=== PATIENT | female | born 1940 | race Caucasian/White ===

== ENCOUNTER 2021-09-04 09:05 | Outpatient (CLI) | payer MEDICARE, BC ==
[2021-09-04 10:08] LABS: #Basophils 0.1 thou/uL (0.0-0.2); #Eosinphils 0.3 thou/uL (0.0-0.7); #Lymphocytes 1.6 thou/uL (1.20-3.40); #Monocytes 0.3 thou/uL (0.11-0.59); #Neutrophils 2.4 thou/uL (1.40-6.50); %Basophils 1.3 % (0.0-1.0); %Eosinophils 6.3 % (0.0-10.0); %Lymphocytes 34.3 % (21.0-51.0); %Monocytes 6.7 % (0.0-10.0); %Neutrophils 51.4 % (42.0-75.0); Hemoglobin 13.1 g/dL (12.0-16.0); Mean Corpuscular HGB CONC 31.9 g/dL (32.0-36.0); Mean Corpuscular Hemoglobin 30.8 pg (27.0-31.0); Mean Corpuscular Volume 96.5 fL (78.0-98.0); Mean Platelet Volume 6.8 fL (7.4-10.4); Platelet Count 238 thou/uL (130-400); RBC Distribution Width 12.6 % (11.5-14.5); Red Blood Cell (RBC) Count 4.26 mill/uL (4.20-5.40); White Blood Cell (WBC) Count 4.7 thou/uL (4.8-10.8)
[2021-09-04 10:09] LABS: PTT 34.4 sec (22.9-36.1); Prothrombin Time 31.6 sec (12.0-14.7)
[2021-09-04 10:20] LABS: AST (SGOT) 16 U/L (5-34); Albumin 3.5 g/dL (3.4-4.8); Alkaline Phosphatase 59 U/L (40-110); Anion Gap 16 mmol/L (10-20); BUN (Urea Nitrogen) 12 mg/dL (9.8-20.1); Bilirubin, Total 0.3 mg/dL (0.2-1.2); Calc. Creatinine Clearance 0 mL/min (70-130); Calcium 9.2 mg/dL (7.8-10.44); Carbon Dioxide 22 mmol/L (23-31); Cardiac Risk 2.2 (Less than 4.5); Chloride 108 mmol/L (98-107); Cholesterol 142 mg/dl (< 200 Desired); Globulin 3.2 g/dL (2.4-3.5); Glucose 84 mg/dL (83-110); HDL Cholesterol 64 mg/dL (>60 Neg Risk); LDL Cholesterol, Calculated 63 mg/dL; Potassium 3.9 mmol/L (3.5-5.1); Protein, Total 6.7 g/dL (5.8-8.1); Sodium 142 mmol/L (136-145); Triglycerides 73 mg/dL (Less than 150)
[2021-09-04 10:24] LABS: ALT (SGPT) 9 U/L (8-55)
[2021-09-04 12:31] LABS: Thyroid Stimulating Hormone 2.3859 uIU/mL (0.35-4.94)
[2021-09-04 16:59] LABS: Vitamin D, 25 Hydroxy 107.4 ng/ml (> 30.0)
[2021-09-04 17:03] LABS: Free T4 (Free Thyroxine) 1.41 ng/dL (0.70-1.48)
[2021-09-04 17:08] LABS: Vitamin B12 Greater than 2000 pg/mL (211-911)
== END 2021-09-04 09:06 | disposition home or self-care (01) ==
LOC: MADLAB 09:05
PROVIDERS: ATTEND Family Medicine
DX: Z51.81 Encounter for therapeutic drug level monitoring (principal); I26.99 Other pulmonary embolism without acute cor pulmonale; N18.30 Chronic kidney disease, stage 3 unspecified; E55.9 Vitamin D deficiency, unspecified; F31.9 Bipolar disorder, unspecified; E78.2 Mixed hyperlipidemia; E03.9 Hypothyroidism, unspecified; R26.81 Unsteadiness on feet; R53.83 Other fatigue; Z79.01 Long term (current) use of anticoagulants
CPT/HCPCS: 36415; 80053; 80061; 80164; 82306; 82607; 84439; 84443; 85025; 85610; 85730

== ENCOUNTER 2021-09-30 14:56 | Outpatient (CLI) | payer BC, MEDICARE ==
[2021-09-30 15:36] LABS: INR-International Normal Ratio 1.1; PTT 24.5 sec (22.9-36.1); Prothrombin Time 14.5 sec (12.0-14.7)
== END 2021-09-30 14:57 | disposition home or self-care (01) ==
LOC: MADLAB 14:56
PROVIDERS: ATTEND Family Medicine
DX: Z51.81 Encounter for therapeutic drug level monitoring (principal); I26.99 Other pulmonary embolism without acute cor pulmonale; Z79.01 Long term (current) use of anticoagulants
CPT/HCPCS: 36415; 85610; 85730

== ENCOUNTER 2021-12-10 14:12 | Outpatient (CLI) | payer MEDICARE, BC ==
[2021-12-10 14:44] LABS: INR-International Normal Ratio 1.8; Prothrombin Time 20.8 sec (12.0-14.7)
[2021-12-10 14:45] LABS: PTT 28.9 sec (22.9-36.1)
== END 2021-12-10 14:13 | disposition home or self-care (01) ==
LOC: MADLAB 14:12 → MADRAD 14:13
PROVIDERS: ATTEND Family Medicine
DX: Z51.81 Encounter for therapeutic drug level monitoring (principal); I26.99 Other pulmonary embolism without acute cor pulmonale; Z79.01 Long term (current) use of anticoagulants; M47.26 Other spondylosis with radiculopathy, lumbar region; M41.9 Scoliosis, unspecified; M47.22 Other spondylosis with radiculopathy, cervical region; M81.0 Age-related osteoporosis without current pathological fracture
CPT/HCPCS: 36415; 72050; 72110; 85610; 85730

== ENCOUNTER 2021-12-26 15:59 | Outpatient (CLI) | payer MEDICARE, BC | END 2021-12-26 16:00 | disposition home or self-care (01) | LOC: MADLABBHPM 15:59 | PROVIDERS: ATTEND Family Medicine | DX: N30.00 Acute cystitis without hematuria (principal) | CPT/HCPCS: 87077; 87086; 87186 ==

== ENCOUNTER 2022-02-27 15:02 | Outpatient (CLI) | payer MEDICARE, BC ==
[2022-02-27 16:00] LABS: INR-International Normal Ratio 1.6; PTT 27.1 sec (22.9-36.1); Prothrombin Time 19.3 sec (12.0-14.7)
== END 2022-02-27 15:03 | disposition home or self-care (01) ==
LOC: MADLAB 15:02
PROVIDERS: ATTEND Family Medicine
DX: I26.99 Other pulmonary embolism without acute cor pulmonale (principal)
CPT/HCPCS: 85610; 85730

== ENCOUNTER 2022-04-08 17:03 | Outpatient (CLI) | payer BC, MEDICARE ==
[2022-04-08 18:41] LABS: #Basophils 0.1 thou/uL (0.0-0.2); #Eosinphils 0.5 thou/uL (0.0-0.7); #Monocytes 0.6 thou/uL (0.11-0.59); #Neutrophils 2.7 thou/uL (1.40-6.50); %Basophils 0.9 % (0.0-1.0); %Eosinophils 7.9 % (0.0-10.0); %Monocytes 10.1 % (0.0-10.0); %Neutrophils 46.1 % (42.0-75.0); ALT (SGPT) 27 U/L (8-55); AST (SGOT) 30 U/L (5-34); Alkaline Phosphatase 92 U/L (40-110); Anion Gap 13 mmol/L (10-20); BUN (Urea Nitrogen) 16 mg/dL (9.8-20.1); Bilirubin, Total 0.3 mg/dL (0.2-1.2); Calc. Creatinine Clearance 0 mL/min (70-130); Calcium 9.3 mg/dL (7.8-10.44); Carbon Dioxide 29 mmol/L (23-31); Chloride 106 mmol/L (98-107); Estimated GFR 56; Globulin 3.1 g/dL (2.4-3.5); Glucose 75 mg/dL (83-110); Hemoglobin 13.8 g/dL (12.0-16.0); INR-International Normal Ratio 3.9; Mean Corpuscular HGB CONC 32.6 g/dL (32.0-36.0); Mean Corpuscular Volume 95.1 fL (78.0-98.0); PTT 45.7 sec (22.9-36.1); Platelet Count 195 thou/uL (130-400); Potassium 4.3 mmol/L (3.5-5.1); Protein, Total 7.1 g/dL (5.8-8.1); Prothrombin Time 39.5 sec (12.0-14.7); RBC Distribution Width 12.4 % (11.5-14.5); Red Blood Cell (RBC) Count 4.45 mill/uL (4.20-5.40); Sodium 144 mmol/L (136-145); White Blood Cell (WBC) Count 5.8 thou/uL (4.8-10.8)
[2022-04-08 18:58] LABS: Thyroid Stimulating Hormone 1.2909 uIU/mL (0.35-4.94)
[2022-04-09 12:15] LABS: Free T4 (Free Thyroxine) 1.09 ng/dL (0.70-1.48)
[2022-04-09 16:02] LABS: Vitamin D, 25 Hydroxy 91.8 ng/ml (> 30.0)
== END 2022-04-08 17:04 | disposition home or self-care (01) ==
LOC: MADLAB 17:03
PROVIDERS: ATTEND Family Medicine
DX: Z51.81 Encounter for therapeutic drug level monitoring (principal); E03.9 Hypothyroidism, unspecified; E55.9 Vitamin D deficiency, unspecified; F31.9 Bipolar disorder, unspecified; N18.30 Chronic kidney disease, stage 3 unspecified; Z79.01 Long term (current) use of anticoagulants
CPT/HCPCS: 80053; 80164; 82306; 84439; 84443; 85025; 85610; 85730

== ENCOUNTER 2022-05-08 14:46 | Emergency (ER) | payer BC, MEDICARE | END 2022-05-08 16:15 | disposition home or self-care (01) | LOC: MADERS 14:46 | DX: M16.12 Unilateral primary osteoarthritis, left hip (principal); M19.012 Primary osteoarthritis, left shoulder; E03.9 Hypothyroidism, unspecified; W19.XXXA Unspecified fall, initial encounter ==

== ENCOUNTER 2022-06-30 10:10 | Outpatient (CLI) | payer MEDICARE, BC ==
[2022-06-30 10:31] LABS: #Eosinphils 0.2 thou/uL (0.0-0.7); #Lymphocytes 1.5 thou/uL (1.20-3.40); #Monocytes 0.4 thou/uL (0.11-0.59); %Basophils 0.7 % (0.0-1.0); %Eosinophils 5.9 % (0.0-10.0); %Lymphocytes 36.5 % (21.0-51.0); %Monocytes 9.5 % (0.0-10.0); %Neutrophils 47.4 % (42.0-75.0); Hemoglobin 14.3 g/dL (12.0-16.0); Mean Corpuscular HGB CONC 32.4 g/dL (32.0-36.0); Mean Corpuscular Hemoglobin 32.5 pg (27.0-31.0); Mean Corpuscular Volume 100.4 fL (78.0-98.0); Mean Platelet Volume 7.4 fL (7.4-10.4); Platelet Count 189 thou/uL (130-400); RBC Distribution Width 11.5 % (11.5-14.5); Red Blood Cell (RBC) Count 4.38 mill/uL (4.20-5.40); White Blood Cell (WBC) Count 4.2 thou/uL (4.8-10.8)
[2022-06-30 10:41] LABS: INR-International Normal Ratio 2.7; Prothrombin Time 29.6 sec (12.0-14.7)
[2022-06-30 10:49] LABS: ALT (SGPT) 14 U/L (8-55); AST (SGOT) 26 U/L (5-34); Albumin 4.1 g/dL (3.4-4.8); Alkaline Phosphatase 67 U/L (40-110); Anion Gap 12 mmol/L (10-20); BUN (Urea Nitrogen) 12 mg/dL (9.8-20.1); Bilirubin, Total 0.4 mg/dL (0.2-1.2); Calc. Creatinine Clearance 0 mL/min (70-130); Calcium 9.7 mg/dL (7.8-10.44); Carbon Dioxide 27 mmol/L (23-31); Chloride 106 mmol/L (98-107); Cholesterol 144 mg/dl (< 200 Desired); Estimated GFR 69; Globulin 2.9 g/dL (2.4-3.5); Glucose 90 mg/dL (83-110); HDL Cholesterol 72 mg/dL (>60 Neg Risk); LDL Cholesterol, Calculated 58 mg/dL; Potassium 4.4 mmol/L (3.5-5.1); Sodium 141 mmol/L (136-145); Triglycerides 71 mg/dL (Less than 150)
[2022-06-30 11:36] LABS: Follow-up Chemistry Comp? YES; Follow-up Result - Chemistry REPORT FAXED
== END 2022-06-30 10:11 | disposition home or self-care (01) ==
LOC: MADLAB 10:10
PROVIDERS: ATTEND Family Medicine
DX: M17.0 Bilateral primary osteoarthritis of knee (principal); I26.99 Other pulmonary embolism without acute cor pulmonale; I25.10 Atherosclerotic heart disease of native coronary artery without angina pectoris; M11.261 Other chondrocalcinosis, right knee
CPT/HCPCS: 36415; 80053; 80061; 85025; 85610

== ENCOUNTER 2022-07-23 16:30 | Outpatient (CLI) | payer MEDICARE, BC ==
[2022-07-23 17:20] LABS: INR-International Normal Ratio 12.1
[2022-07-23 17:21] LABS: PTT 152.5 sec (22.9-36.1)
== END 2022-07-23 16:31 | disposition home or self-care (01) ==
LOC: MADLAB 16:30
PROVIDERS: ATTEND Family Medicine
DX: Z51.81 Encounter for therapeutic drug level monitoring (principal); I26.99 Other pulmonary embolism without acute cor pulmonale; Z79.01 Long term (current) use of anticoagulants
CPT/HCPCS: 36415; 85610; 85730

== ENCOUNTER 2022-07-23 16:35 | Emergency (ER) | payer MEDICARE, BC ==
[2022-07-23 18:40] LABS: Prothrombin Time 97.9 sec (12.0-14.7)
[2022-07-23 18:45] LABS: INR-International Normal Ratio 12.4; PTT 170.8 sec (22.9-36.1)
[2022-07-23 18:46] LABS: ALT (SGPT) 30 U/L (8-55); AST (SGOT) 35 U/L (5-34); Albumin 3.8 g/dL (3.4-4.8); Alkaline Phosphatase 73 U/L (40-110); Anion Gap 12 mmol/L (10-20); BUN (Urea Nitrogen) 9 mg/dL (9.8-20.1); Bilirubin, Total 0.3 mg/dL (0.2-1.2); Calc. Creatinine Clearance 0 mL/min (70-130); Calcium 9.1 mg/dL (7.8-10.44); Carbon Dioxide 23 mmol/L (23-31); Chloride 109 mmol/L (98-107); Estimated GFR 76; Globulin 3.1 g/dL (2.4-3.5); Glucose 88 mg/dL (83-110); Potassium 3.3 mmol/L (3.5-5.1); Protein, Total 6.9 g/dL (5.8-8.1); Sodium 141 mmol/L (136-145)
[2022-07-23 18:51] LABS: Band 1 % (5-11); Lymphocytes 38 % (21-51); MDiff Complete? YES; Mean Corpuscular HGB CONC 33.6 g/dL (32.0-36.0); Mean Corpuscular Hemoglobin 32.3 pg (27.0-31.0); Mean Corpuscular Volume 96.1 fl (78.0-98.0); Mean Platelet Volume 7.5 fL (7.4-10.4); Monocytes 18 % (0-10); Neutrophil 43 % (42-75); Platelet Count 216 thou/uL (130-400); Platelet Morphology Comment Appears Adequate; RBC Distribution Width 11.3 % (11.5-14.5); RBC Morphology Normal; Red Blood Cell (RBC) Count 4.34 mill/uL (4.20-5.40); White Blood Cell (WBC) Count 3.5 thou/uL (4.8-10.8)
[2022-07-23] MEDS ORDERED: Potassium Chloride 20 MEQ TAB ONE (19:42)
== END 2022-07-23 19:50 | disposition home or self-care (01) ==
LOC: MADERS 16:35
DX: D68.9 Coagulation defect, unspecified (principal); R04.2 Hemoptysis; E87.6 Hypokalemia; I10 Essential (primary) hypertension; E03.9 Hypothyroidism, unspecified; Z79.01 Long term (current) use of anticoagulants; Z79.899 Other long term (current) drug therapy
CPT/HCPCS: 36415; 71046; 80053; 85025; 85610; 85730; 94760

== ENCOUNTER 2022-07-24 10:40 | Outpatient (CLI) | payer MEDICARE, BC ==
[2022-07-24 11:09] LABS: INR-International Normal Ratio 3.8; Prothrombin Time 38.5 sec (12.0-14.7)
== END 2022-07-24 10:41 | disposition home or self-care (01) ==
LOC: MADLAB 10:40
PROVIDERS: ATTEND Family Medicine
DX: I26.99 Other pulmonary embolism without acute cor pulmonale (principal)
CPT/HCPCS: 36415; 85610

== ENCOUNTER 2022-07-29 12:12 | Emergency (ER) | payer BC, MEDICARE ==
[2022-07-29 12:51] LABS: #Lymphocytes 1.2 thou/uL (1.20-3.40); #Monocytes 0.8 thou/uL (0.11-0.59); #Neutrophils 3.9 thou/uL (1.40-6.50); %Basophils 0.7 % (0.0-1.0); %Eosinophils 0.4 % (0.0-10.0); %Lymphocytes 20.1 % (21.0-51.0); %Monocytes 13.4 % (0.0-10.0); %Neutrophils 65.4 % (42.0-75.0); Hemoglobin 14.1 g/dL (12.0-16.0); Mean Corpuscular HGB CONC 33.1 g/dL (32.0-36.0); Mean Corpuscular Hemoglobin 31.9 pg (27.0-31.0); Mean Corpuscular Volume 96.4 fl (78.0-98.0); Mean Platelet Volume 6.1 fL (7.4-10.4); Platelet Count 319 thou/uL (130-400); RBC Distribution Width 11.1 % (11.5-14.5); Red Blood Cell (RBC) Count 4.41 mill/uL (4.20-5.40)
[2022-07-29 12:54] LABS: INR-International Normal Ratio 1.1; Prothrombin Time 14.4 sec (12.0-14.7)
[2022-07-29 12:55] LABS: PTT 23.8 sec (22.9-36.1)
[2022-07-29 13:04] LABS: ALT (SGPT) 18 U/L (8-55); AST (SGOT) 22 U/L (5-34); Albumin 3.9 g/dL (3.4-4.8); Alkaline Phosphatase 74 U/L (40-110); Anion Gap 16 mmol/L (10-20); BUN (Urea Nitrogen) 16 mg/dL (9.8-20.1); Bilirubin, Total 0.6 mg/dL (0.2-1.2); Calc. Creatinine Clearance 0 mL/min (70-130); Calcium 9.7 mg/dL (7.8-10.44); Carbon Dioxide 22 mmol/L (23-31); Chloride 106 mmol/L (98-107); Estimated GFR 74; Globulin 3.5 g/dL (2.4-3.5); Glucose 94 mg/dL (83-110); Potassium 3.8 mmol/L (3.5-5.1); Protein, Total 7.4 g/dL (5.8-8.1); Sodium 140 mmol/L (136-145)
[2022-07-29] MEDS ORDERED: Aspirin Chewable 81 MG TAB ONE (14:48)
== END 2022-07-29 15:02 | disposition left against medical advice (07) ==
LOC: MADERS 12:12
DX: I63.9 Cerebral infarction, unspecified (principal); I10 Essential (primary) hypertension; Z79.899 Other long term (current) drug therapy; Z79.01 Long term (current) use of anticoagulants
CPT/HCPCS: 36416; 70450; 71045; 80053; 85025; 85610; 85730; 93005; 94760

== ENCOUNTER 2022-08-06 12:11 | Outpatient (CLI) | payer MEDICARE, BC ==
[2022-08-06 13:05] LABS: INR-International Normal Ratio 2.2; PTT 36.1 sec (22.9-36.1); Prothrombin Time 25.5 sec (12.0-14.7)
== END 2022-08-06 12:12 | disposition home or self-care (01) ==
LOC: MADLAB 12:11
PROVIDERS: ATTEND Family Medicine
DX: Z51.81 Encounter for therapeutic drug level monitoring (principal); I26.99 Other pulmonary embolism without acute cor pulmonale; Z79.01 Long term (current) use of anticoagulants
CPT/HCPCS: 36415; 85610; 85730

== ENCOUNTER 2023-11-15 12:29 | Outpatient (CLI) | payer MEDICARE, BC | END 2023-11-15 12:30 | disposition home or self-care (01) | LOC: MADRAD 12:29 | PROVIDERS: ATTEND Nurse Practitioner Family | DX: R05.3 Chronic cough (principal) | CPT/HCPCS: 71046 ==

== ENCOUNTER 2024-01-27 15:48 | Outpatient (CLI) | payer MEDICARE, BC | END 2024-01-27 15:49 | disposition home or self-care (01) | LOC: MADRAD 15:48 | PROVIDERS: ATTEND Physician Assistant | DX: Z71.3 Dietary counseling and surveillance (principal); R19.5 Other fecal abnormalities | CPT/HCPCS: 74018 ==